=== PATIENT | female | born 1990 ===

== ENCOUNTER 2017-07-20 15:13 | Emergency (ER) | payer SELFPAY ==
[2017-07-20 15:13] VITALS: BMI 33.6
[2017-07-20 15:34] VITALS: TEMP 97.7
--- NOTE | 2017-07-20 17:20 | C.PDOC ---
History Of Present Illness 26 y/o female presents to ED with c/o nausea, vomiting and lightheadedness for 2 weeks associated with pelvic cramping. Patient states she took home test that was positive but has been taking weight loss supplements and wants to make sure her baby is okay. Patient denies vaginal bleeding, fever, dysuria or any other complaints at this time. LMP 06/10/17 Time Seen by Provider: 07/20/17 16:02 Chief Complaint (Nursing): GI Problem History Per: Patient History/Exam Limitations: no limitations Onset/Duration Of Symptoms: Days Current Symptoms Are (Timing): Still Present Past Medical History Reviewed: Historical Data, Nursing Documentation, Vital Signs Vital Signs: Last Vital Signs Temp 97.7 F 07/20/17 15:28 Pulse 80 07/20/17 15:28 Resp 20 07/20/17 15:28 BP 139/81 07/20/17 15:28 Pulse Ox 100 07/20/17 17:25 - Medical History PMH: No Chronic Diseases Surgical History: No Surg Hx - [facility] DPT ADMINISTRATION (04/16/14) EPISIOTOMY (04/16/14) REPAIR OB LACERATION NEC (04/16/14) Family History: States: No Known Family Hx - Social History Hx Alcohol Use: Yes Hx Substance Use: No - Immunization History Hx Tetanus Toxoid Vaccination: No Hx Influenza Vaccination: No Hx Pneumococcal Vaccination: No Review Of Systems Except As Marked, All Systems Reviewed And Found Negative. Constitutional: Negative for: Fever, Chills Cardiovascular: Positive for: Light Headedness Gastrointestinal: Positive for: Nausea, Vomiting Genitourinary: Positive for: Pelvic Pain Skin: Negative for: Rash Physical Exam - Physical Exam Appears: Non-toxic, No Acute Distress Skin: Normal Color, Warm, Dry, No Rash Head: Atraumatic, Normacephalic Eye(s): bilateral: Normal Inspection Oral Mucosa: Moist Neck: Normal ROM, Supple Cardiovascular: Rhythm Regular Respiratory: Normal Breath Sounds, No Rales, No Rhonchi, No Wheezing Gastrointestinal/Abdominal: Soft, No Tenderness, No Guarding, No Rebound Back: No CVA Tenderness Extremity: Normal ROM, Capillary Refill (<2 seconds) Neurological/Psych: Oriented x3, Normal Speech, Normal Cognition ED Course And Treatment O2 Sat by Pulse Oximetry: 100 (RA) Pulse Ox Interpretation: Normal Progress Note: UA HCG and OB transvaginal US ordered. Disposition Counseled Patient/Family Regarding: Studies Performed, Diagnosis, Need For Followup - Disposition Referrals: [facility] [Outside] [facility] [place] [Outside] [facility] [employer] [Outside] Disposition: HOME/ ROUTINE Disposition Time: 18:45 Condition: STABLE Additional Instructions: FOLLOW UP WITH [facility]ILDREN'S T[facility]OR WITHIN 1 WEEK RETURN TO EMERGENCY ROOM IF YOU GACE WORSENING OR CONCERNING SYMPTOMS SEGUIMIENTO CON OB / WASHROOM CLEANER DENTRO DE 1 SEMANA REGRESE AL JOSE RAFAEL DE EMERGENCIA SI SE ACUDE A EMERGENCIAS O CON SINTOMAS RELACIONADOS Prescriptions: Ondansetron [Zofran Odt] 4 mg PO Q8 PRN #10 odt PRN Reason: Nausea/Vomiting Multivit/Folic Acid/I [ Plus] 1 tab PO DAILY #30 tab Instructions: Symptoms Forms: [facility] (Georgian), General Discharge Instructions Print Language: YI - POA Present On Arrival: None - Clinical Impression Clinical Impression: , Morning sickness - Scribe Statement The provider has reviewed the documentation as recorded by the Scribjatin Morales All medical record entries made by the Scribe were at my direction and personally dictated by me. I have reviewed the chart and agree that the record accurately reflects my personal performance of the history, physical exam, medical decision making, and the department course for this patient. I have also personally directed, reviewed, and agree with the discharge instructions and disposition.
[2017-07-20 17:25] LABS: HCG,QUALITATIVE URINE POSITIVE (NEGATIVE)
[2017-07-20 17:33] LABS: SQUAMOUS EPITHIAL 5 /hpf (0-5); URINE BILIRUBIN NEGATIVE (NEGATIVE); URINE BLOOD NEGATIVE (NEGATIVE); URINE CLARITY Clear (Clear); URINE COLOR Yellow (YELLOW); URINE GLUCOSE (UA) NORMAL (Normal); URINE LEUKOCYTE ESTERASE NEG Leu/uL (Negative); URINE PROTEIN NEGATIVE (NEGATIVE); URINE UROBILINOGEN NORMAL mg/dL (0.2-1.0)
--- NOTE | 2017-07-20 18:45 | US ---
PROCEDURE: First trimester ultrasound HISTORY: , pelvic pain COMPARISON: None. TECHNIQUE: Standard protocol for this study/examination. FINDINGS: LMP: 06/10/2017 Prior examinations from the current : None TECHNIQUE: Real-time 2D imaging, duplex and color Doppler. FINDINGS: Cardiac activity: Present Rate: 170 BPM Measurements: [place] rump length: 1.70 cm Gestational age based on CRL 8 weeks 1 day Gestational age 7 weeks 6 days based on gestational sac measurement 2.99 cm Gestational age derived from LMP: 5 weeks 5 days KEVIN based on LMP: 03/17/2018 KEVIN based on biometry: 03/01/2018 Gestational concordance documented Yolk sac identified Uterus: Unremarkable. Cervix: No Cervical abnormalities: Negative examination for cervical dilatation or effacement. Closed cervix measuring 3.32 cm Subchorionic hemorrhage: None UTERUS: 5.8 x 8.2 x 11 cm. ADNEXA: Right: 2.5 x 2.7 x 3.4 cm. Normal Doppler arterial waveform documented. Left: 2.2 x 3.1 x 3.1 cm. Normal Doppler arterial waveform documented Fluid in the cul-de-sac: None IMPRESSION: 8 weeks live intrauterine gestation.
[2017-07-20 18:56] VITALS: BP 129/79; PULSE 74; RESP 181; O2SAT 0
== END 2017-07-20 18:56 | disposition home or self-care (01) ==
LOC: C.ER 15:13
DX: O21.0 Mild hyperemesis gravidarum (principal); Z3A.01 Less than 8 weeks gestation of pregnancy